=== PATIENT | female | born 1990 | race Two or more races ===

== ENCOUNTER → 2019-05-22 | Outpatient (CLI) | payer BC ==
[2019-05-26 00:36] LABS: AFP MOM 2 1.28 (.); DSR (BY AGE) 1 IN 885 (.); HCG MOM 1 1.54 (.); HCG VALUE 1 33206 mIU/mL (.); INSULIN DEPENDENT DIABETES No (.); OSBR RISK (1 IN) 5096 (.); T18RISK Not increased (.)
== END ==
LOC: OD 16:36
PROVIDERS: ATTEND Midwife
DX: Z36.89 Encounter for other specified antenatal screening (principal)
CPT/HCPCS: 36415; 82105; 82677; 84702; 86336

== ENCOUNTER 2019-10-04 06:10 | Inpatient (IN) | payer BC ==
[2019-10-04] MEDS ORDERED: OXYTOCIN/NORMAL SALINE 20 UNIT/1,000 ML RTUINJ ONE (06:30)
[2019-10-04] MEDS ORDERED: OXYTOCIN 10 UNIT/ML VIAL ONE (06:30)
[2019-10-04] MEDS ORDERED: MISOPROSTOL 0.2 MG TABLET ONE (06:30)
[2019-10-04] MEDS ORDERED: LIDOCAINE 1% INJ-PF (10 MG/ML) 30 ML SDV ONE (06:30)
[2019-10-04] MEDS ORDERED: RINGERS SOLUTION,LACTATED 1,000 ML IV PRN (06:37)
[2019-10-04] MEDS ORDERED: RINGERS SOLUTION,LACTATED 1,000 ML IV ONE (06:37)
[2019-10-04 07:16] LABS: URINE AMPHETAMINES SCREEN NEGATIVE; URINE BARBITURATES SCREEN NEGATIVE; URINE BENZODIAZEPINES SCREEN NEGATIVE; URINE COCAINE SCREEN NEGATIVE; URINE MARIJUANA (THC) SCREEN NEGATIVE; URINE METHADONE SCREEN NEGATIVE; URINE PHENCYCLIDINE SCREEN NEGATIVE
[2019-10-04 07:20] LABS: ABSOLUTE LYMPHOCYTES (AUTO) 1.4 10^3/uL (0.5-4.7); ABSOLUTE MONOCYTES (AUTO) 0.8 10^3/uL (0.1-1.4); ABSOLUTE NEUT (AUTO) 10.5 10^3/uL (1.7-8.2); BASOPHILS % (AUTO) 0.4 % (0-2); EOSINOPHILS % (AUTO) 0.3 % (0-6); HEMATOCRIT 34.2 % (36.0-47.0); HEMOGLOBIN 11.4 g/dL (12.0-15.5); MEAN CORPUSCULAR HEMOGLOBIN 29.3 pg (27.0-33.4); MEAN CORPUSCULAR HGB CONC 33.5 g/dL (32.0-36.0); MEAN CORPUSCULAR VOLUME 87 fl (80-97); MONOCYTES % (AUTO) 6.5 % (3-13); PLATELET COUNT 114 10^3/uL (150-450); RED BLOOD COUNT 3.91 10^6/uL (3.72-5.28); RED CELL DISTRIBUTION WIDTH 14.4 % (11.5-14.0); SEGMENTED NEUTROPHILS % (AUTO) 81.8 % (42-78); TOTAL CELLS COUNTED % (AUTO) 100 %; WHITE BLOOD COUNT 12.9 10^3/uL (4.0-10.5)
--- NOTE | 2019-10-04 07:44 | Admission Physical ---
Datetime Report Generated by CPN: 10/04/2019 07:43 CURRENT ADMISSION Chief Complaint: Suspected Ruptured Membranes Indication for Induction: Not Applicable Admit Impression : Ruptured Membranes Admit Plan: Admit to Unit ALLERGIES Medication Allergies: No Medication Allergies: No Known Allergies (10/04/2019) Latex: No Latex Allergies Food Allergies: None Environmental Allergies: None OBSTETRICAL HISTORY EDC: 10/10/2019 00:00 : 3 Para: 2 Term: 2 : 0 SAB: 0 IAB: 0 Ectopic: 0 Livin Cesareans: 0 VBACs: 0 Multiple Births: 0 Gestational Diabetes: No Rh Sensitization: No Incompetent Cervix: No TIERRA: No Infertility: No ART Treatment: No Uterine Anomaly: No IUGR: No Hx Previous C/S: No Macrosomia: No Hx Loss/Stillborn: No PIH: No Hx : No Placenta Previa/Abruption: No Depression/PP Depression: No PTL/PROM: No Post Hemorrhage: No Obstetrical History Comments: G1 - at 40 weeks (2011) G2 - at 42 weeks (2014) G3 - current SEE RECORDS Alcohol: No Marijuana : No Cocaine: No Other Illicit Drugs: No Cigarettes: Never Smoker. [id number] MEDICAL HISTORY Diabetes: No Blood Transfusion: No Pulmonary Disease (Asthma, TB): No Breast Disease: No Hypertension: No V Belt Skiver Surgery: No Heart Disease: No Hosp/Surgery: No Autoimmune Disorder: No Anesthetic Complications: No Kidney Disease: No Abnormal Pap Smear: No Neuro/Epilepsy: No Psychiatric Disorders: Yes Other Medical Diseases: No Hepatitis/Liver Disease: No Significant Family History: No Varicosities/Phlebitis: No Trauma/Violence : No Thyroid Dysfunction: No Medical History Comments: Anxiety and Depression - stopped Lexapro with , Knee Injury INFECTIOUS HISTORY Gonorrhea: No Genital Herpes: No Chlamydia: No Tuberculosis: No Syphilis: No Hepatitis: No HIV/AIDS Exposure: No Rash or Viral Illness: No HPV: No PHYSICAL EXAM General: Normal HEENT: Normal Neurologic: Normal Thyroid: Normal Heart: Normal Lungs: Normal Breast: Deferred Back: Normal Abdomen: Normal Genitourinary Exam: Normal Extremities: Normal DTRs: Normal Pelvic Type: Adequate Vital Signs: Reviewed VAGINAL EXAM Dilatation: 7 Effacement: 90 Station: -1 MEMBRANES Pooling: Positive Membranes: Ruptured FETUS A EGA: 39.1 Monitoring: External US FHR- Baseline: 150 Variability: Moderate 6-25bpm Decelerations: None FHR Category: Category I Admit Comment: Admit for labor. Efw 7-8 lbs PLANS FOR LABOR AND DELIVERY Labor and Delivery: None Pain Management: Natural Feeding Preference: Breast Benefit of Breast Feed Discussed: Yes Circumcision: N/A INFORMED CONSENT Signature: with User ID: [email or web address]
[2019-10-04] MEDS ORDERED: NA PHOS,M-B/NA PHOS,DI-BA (ADULT) 133 ML ENEMA PR PRN (08:15)
[2019-10-04] MEDS ORDERED: MEASLES,MUMPS&RUBELLA VACC/PF 0.5 ML VIAL SUBCUT PRN (08:15)
[2019-10-04] MEDS ORDERED: MAGNESIUM HYDROXIDE SUSP 30 ML UDCUP PO PRN (08:15)
[2019-10-04] MEDS ORDERED: PSEUDOEPHEDRINE HCL 30 MG TABLET PO PRN (08:15)
[2019-10-04] MEDS ORDERED: ACETAMINOPHEN WITH CODEINE #3 TABLET PO PRN ×2 (08:15)
[2019-10-04] MEDS ORDERED: PROMETHAZINE HCL 25 MG SUPP.RECT PR PRN (08:15)
[2019-10-04] MEDS ORDERED: DIPHENHYDRAMINE HCL 25 MG CAPSULE PO PRN (08:15)
[2019-10-04] MEDS ORDERED: ACETAMINOPHEN 650 MG SUPP.RECT PR PRN (08:15)
[2019-10-04] MEDS ORDERED: GLYCERIN/WITCH HAZEL LEAF 1 EACH MED..WIPE TP PRN (08:15)
[2019-10-04] MEDS ORDERED: PROMETHAZINE HCL INJ 25 MG/1 ML VIAL IV PRN (08:15)
[2019-10-04] MEDS ORDERED: DIBUCAINE 1% OINTMENT 56 GM TP PRN (08:15)
[2019-10-04] MEDS ORDERED: DIPH/PERTUSS(ACELL)/TETANUS VAC/PF 0.5 ML SYR (>=10YO) IM PRN (08:15)
[2019-10-04] MEDS ORDERED: ZOLPIDEM TARTRATE 5 MG TABLET PO PRN (08:15)
[2019-10-04] MEDS ORDERED: OXYTOCIN/NORMAL SALINE 20 UNIT/1,000 ML RTUINJ IV PRN (08:15)
[2019-10-04] MEDS ORDERED: PROMETHAZINE HCL 25 MG TABLET PO PRN (08:15)
[2019-10-04] MEDS ORDERED: BENZOCAINE/MENTHOL AEROSOL SPRAY 56 ML TOP PRN (08:15)
[2019-10-04] MEDS ORDERED: IBUPROFEN 800 MG TABLET ONE (08:20)
--- NOTE | 2019-10-04 11:10 | Delivery Summary ---
Del Sum A-C Datetime Report Generated by CPN: 10/04/2019 11:09 DELIVERY PERSONNEL DELIVERY PERSONNEL: [id number] Delivery Doctor:: Carline Ramsey MD Labor and Delivery Nurse:: Wendy Richter RNteamsite developer Nurse:: Mirat Tyler RN Nursery Nurse:: Deborah Lane RN Hereditary Cancer Program Coordinator/MANAGER WHOLESALE: Rupa Fregoso, S[employer] MATERNAL INFORMATION Delivery Anesthesia: None Medications After Delivery: Pitocin Bolus-Please Comment Estimated Blood Loss (ml): 250 Delivery QBL: 250 Maternal Complications: None LABOR SUMMARY EDC: 10/10/2019 00:00 No. Babies in Womb: 1 Attempted: No Labor Anesthesia: None LABOR INFORMATION Reason for Induction: Not Applicable Oxytocin: N/A Group B Beta Strep: negative Antibiotics # of Doses: n/a Steroids Given: None Reason Steroids Not Administered: Not Applicable MEMBRANES Membranes Rupture Method: Spontaneous Rupture of Membranes: 10/04/2019 06:56 Length of Rupture (hr): 1.10 Amniotic Fluid Color: Light Meconium Amniotic Fluid Amount: Moderate Amniotic Fluid Odor: Normal STAGES OF LABOR Stage 3 hr: 0 Stage 3 min: 4 VAGINAL DELIVERY Episiotomy: None Laceration #1: Perineal Laceration Extension #1: First Degree Laceration #2: None Laceration Extension #2: N/A Laceration #3: None Laceration Extension #3: N/A Laceration Repair: Yes Laceration Repair Note: one 3-0 chromic suture used Sponge Count Correct: Vaginal Sweep Performed CSECTION DELIVERY Primary Indication: N/A Secondary Indication: N/A BABY A INFORMATION Delivery Date/Time: 10/04/2019 08:02 Method of Delivery: Vaginal Born in Route : No : N/A Forceps: N/A Vacuum Extraction: N/A Shoulder Dystocia : Yes PRESENTATION/POSITION BABY A Presentation: Cephalic Cephalic Presentation: Vertex Vertex Position: Left Occipital Posterior Breech Presentation: N/A PLACENTA INFORMATION BABY A Placenta Delivery Time : 10/04/2019 08:06 Placenta Method of Delivery: Spontaneous Placenta Status: Delivered SCORES BABY A Heart Rate 1 min: >100 bpm Resp Effort 1 min: Good Cry Reflex Irritability 1 min: Cough or Sneeze or Pulls Away Muscle Tone 1 min: Active Motion Color 1 min: Blue/Pale Resuscitation Effort 1 min: Tactile Stimulation SCORE 1 MIN: 8 Heart Rate 5 min: >100 bpm Resp Effort 5 min: Good Cry Reflex Irritability 5 min: Cough or Sneeze or Pulls Away Muscle Tone 5 min: Active Motion Color 5 min: Body [place], Extremities Blue Resuscitation Effort 5 min: Tactile Stimulation SCORE 5 MIN: 9 INFANT INFORMATION BABY A Gestational Age at Delivery: 39.1 Gestational Status: Full Term- 39- 40.6 Weeks Infant Outcome : Liveborn Condition : Stable Infant Sex: Female IDENTIFICATION BABY A Verification Date/Time: 10/04/2019 08:41 ID Band Number: [id number] Mother's Name Verified: Yes Infant RN Verifying Infant: Mandy Richter, RN Additional Verifying Personnel: Rik Tyler RN WEIGHT/LENGTH BABY A Infant Birthweight (gm): 3353 Infant Weight (lb): 7 Infant Weight (oz): 6 Infant Length (in): 20.00 Infant Length (cm): 50.80 CORD INFORMATION BABY A No. Cord Vessels: 3 Nuchal Cord : N/A Cord Blood Taken: Yes-For Storage (Mom's Blood type +) Infant Suction: None ASSESSMENT BABY A Complications: None Physical Findings at Delivery: Within Normal Limits Infant Respirations: Appears Normal Skin to Skin: Yes Chemical Engineering Professor/ALS Called : No Care By: Sohail Lane RN Transferred To: Remains with Mother BABY B INFORMATION : N/A SIGNATURES Signature: with User ID: [email or web address]
[2019-10-04] MEDS: DOCUSATE SODIUM 100 MG CAPSULE PO SCH ×2 (19:49→20:48)
[2019-10-04] MEDS: IBUPROFEN 800 MG TABLET PO SCH ×2 (19:49→22:10)
[2019-10-04] MEDS: FERROUS SULFATE 325 MG TABLET PO SCH ×2 (19:49→20:48)
[2019-10-04] MEDS: SENNOSIDES/DOCUSATE 8.6-50 MG 1 EACH TABLET PO SCH (19:49)
[2019-10-04] MEDS: FAMOTIDINE 20 MG TABLET PO SCH ×2 (19:49→22:10)
[2019-10-04] MEDS: PRENATAL VITAMIN W DHA CAPSULE PO SCH (19:49)
[2019-10-05] MEDS: IBUPROFEN 800 MG TABLET PO SCH ×2 (05:50→14:05)
[2019-10-05] MEDS ORDERED: SERTRALINE HCL 50 MG TABLET PO SCH (08:00)
[2019-10-05 08:25] LABS: HEMATOCRIT 30.1 % (36.0-47.0); HEMOGLOBIN 10.1 g/dL (12.0-15.5); MEAN CORPUSCULAR HEMOGLOBIN 29.2 pg (27.0-33.4); MEAN CORPUSCULAR HGB CONC 33.4 g/dL (32.0-36.0); MEAN CORPUSCULAR VOLUME 88 fl (80-97); PLATELET COUNT 118 10^3/uL (150-450); RED BLOOD COUNT 3.44 10^6/uL (3.72-5.28); RED CELL DISTRIBUTION WIDTH 14.2 % (11.5-14.0); WHITE BLOOD COUNT 12.5 10^3/uL (4.0-10.5)
[2019-10-05 09:08] VITALS: BP 119/81
[2019-10-05] MEDS: PRENATAL VITAMIN W DHA CAPSULE PO SCH (09:34)
[2019-10-05] MEDS: SENNOSIDES/DOCUSATE 8.6-50 MG 1 EACH TABLET PO SCH (09:35)
[2019-10-05] MEDS: FERROUS SULFATE 325 MG TABLET PO SCH (09:35)
[2019-10-05] MEDS: FAMOTIDINE 20 MG TABLET PO SCH (09:35)
[2019-10-05] MEDS: DOCUSATE SODIUM 100 MG CAPSULE PO SCH (09:35)
--- NOTE | 2019-10-05 09:39 | PDOC DISCHARGE SUMMARY ---
Impression - Admit/DC Date/PCP Admission Date/Primary Care Provider: 10/04/19 06:30 MOIRA GARCIA MD Discharge Date: 10/05/19 - Discharge Diagnosis (1) (spontaneous vaginal delivery) Is this a current diagnosis for this admission?: Yes (2) Perineal laceration during delivery Is this a current diagnosis for this admission?: Yes - Additional Information Resuscitation Status: Full Code Discharge Diet: Regular Discharge Activity: Balance Activity w/Rest Referrals: MOIRA GARCIA MD [Primary Care Provider] - Prescriptions: Ibuprofen [Motrin 800 mg Tablet] 800 mg PO Q8 #60 tablet Home Medications: [id number]/Iron Fum,Ps/Folic/Dha [Provida Dha Capsule] 90 mg PO DAILY 10/04/19 Ibuprofen [Motrin 800 mg Tablet] 800 mg PO Q8 #60 tablet 10/05/19 Results Laboratory Results: WBC 12.5 10^3/uL (4.0-10.5) H 10/05/19 07:52 RBC 3.44 10^6/uL (3.72-5.28) L 10/05/19 07:52 Hgb 10.1 g/dL (12.0-15.5) L 10/05/19 07:52 Hct 30.1 % (36.0-47.0) L 10/05/19 07:52 MCV 88 fl (80-97) 10/05/19 07:52 MCH 29.2 pg (27.0-33.4) 10/05/19 07:52 MCHC 33.4 g/dL (32.0-36.0) 10/05/19 07:52 RDW 14.2 % (11.5-14.0) H 10/05/19 07:52 Plt Count 118 10^3/uL (150-450) L 10/05/19 07:52 Lymph % (Auto) 11.0 % (13-45) L 10/04/19 07:00 [place] % (Auto) 6.5 % (3-13) 10/04/19 07:00 Eos % (Auto) 0.3 % (0-6) 10/04/19 07:00 Baso % (Auto) 0.4 % (0-2) 10/04/19 07:00 Absolute Neuts (auto) 10.5 10^3/uL (1.7-8.2) H 10/04/19 07:00 Absolute Lymphs (auto) 1.4 10^3/uL (0.5-4.7) 10/04/19 07:00 Absolute Monos (auto) 0.8 10^3/uL (0.1-1.4) 10/04/19 07:00 Absolute Eos (auto) 0.0 10^3/uL (0.0-0.6) 10/04/19 07:00 Absolute Basos (auto) 0.0 10^3/uL (0.0-0.2) 10/04/19 07:00 Seg Neutrophils % 81.8 % (42-78) H 10/04/19 07:00 Urine Opiates Screen NEGATIVE 10/04/19 06:15 Urine Methadone Screen NEGATIVE 10/04/19 06:15 Ur Barbiturates Screen NEGATIVE 10/04/19 06:15 Ur Phencyclidine Scrn NEGATIVE 10/04/19 06:15 Ur Amphetamines Screen NEGATIVE 10/04/19 06:15 U Benzodiazepines Scrn NEGATIVE 10/04/19 06:15 Urine Cocaine Screen NEGATIVE 10/04/19 06:15 U Marijuana (THC) Screen NEGATIVE 10/04/19 06:15 RPR NONREACTIVE (NONREACTIVE) 10/04/19 07:00 Blood Type AB POSITIVE 10/04/19 07:00 Antibody Screen NEGATIVE 10/04/19 07:00
--- NOTE | 2019-10-05 09:39 | PDOC PROGRESS REPORT ---
Subjective-OB Progress Note for:: 10/05/19 Subjective: Pt doing well, would like to go home today. She is requesting to start back on SSRI, is . Reports light bleeding, reg diet and voiding without difficulty. Physical Exam (OB) Vital Signs: Temp Pulse Resp BP Pulse Ox 98.5 F 85 16 119/81 100 10/05/19 08:00 10/05/19 08:00 10/05/19 08:00 10/05/19 08:00 10/05/19 08:00 Intake & Output 10/04/19 10/05/19 10/06/19 06:59 06:59 06:59 Intake Total 500 Balance 500 Weight 92.9 kg - PIH/Pre-Eclampsia Headache: Absent Epigastric Pain: No Visual Changes: No - Lochia Lochia Amount: Scant < 10 ml Lochia Color: Rubra/Red - Abdomen Description: Soft Hernia Present: No Fundal Description: Firm, Midline Fundal Height: u/u - u/2 Objective-Diagnostic Laboratory: 10/05/19 07:52 10/05/19 07:52 WBC 12.5 H RBC 3.44 L Hgb 10.1 L Hct 30.1 L MCV 88 MCH 29.2 MCHC 33.4 RDW 14.2 H Plt Count 118 L Assessment and Plan(PN) - Assessment and Plan (1) (spontaneous vaginal delivery) Is this a current diagnosis for this admission?: Yes (2) Perineal laceration during delivery Qualifiers: Perineal laceration degree: first degree Qualified Code(s): O70.0 - First degree perineal laceration during delivery Is this a current diagnosis for this admission?: Yes - Time Spent with Patient Time with patient: Less than 15 minutes Medications reviewed and adjusted accordingly: Yes - Disposition Anticipated Discharge: Home Within: within 24 hours
== END 2019-10-05 16:10 | disposition home or self-care (01) | DRG 807 ==
LOC: LC 06:10 → LR 06:30 → 2S 12:14
PROVIDERS: ADMIT Obstetrics & Gynecology; ATTEND Obstetrics & Gynecology
PROC: 10E0XZZ Delivery of Products of Conception, External Approach (ICD-10-PCS; principal; 2019-10-04)
DX: O70.0 First degree perineal laceration during delivery (principal); Z37.0 Single live birth; Z3A.39 39 weeks gestation of pregnancy
CPT/HCPCS: 36415; 80307; 85025; 85027; 86592; 86850; 86900; 86901; J2590; J3490